=== PATIENT | female | born 1960 | race Caucasian/White ===

== ENCOUNTER 2019-09-10 16:18 | Emergency (ER) | payer MEDICAID, OTHER ==
[~2019-09-10] VITALS: Ht 162.6 cm; Wt 79.0 kg
[~2019-09-10 16:18] MED LIST: CYCL-1 PO
[2019-09-10 16:34] VITALS: BP 123/68
[2019-09-10] MEDS ORDERED: ketorolac trometh inj. 60 MG/2 ML VIAL IM ONE (17:05)
[2019-09-10] MEDS ORDERED: ondansetron 4mg rapidly disintigrating tab PO ONE (17:05)
[2019-09-10] MEDS ORDERED: HYDROcodone/acetaminophen 5mg/325mg tablet PO ONE (17:05)
[2019-09-10] MEDS ORDERED: HYDR-4383 PO (17:40)
== END 2019-09-10 18:07 | disposition home or self-care (01) ==
LOC: ER 16:18
DX: S82.831A Other fracture of upper and lower end of right fibula, initial encounter for closed fracture (principal); J45.909 Unspecified asthma, uncomplicated; Z90.49 Acquired absence of other specified parts of digestive tract; Z90.89 Acquired absence of other organs; Z79.899 Other long term (current) drug therapy; W01.0XXA Fall on same level from slipping, tripping and stumbling without subsequent striking against object, initial encounter; Y93.89 Activity, other specified; Y92.89 Other specified places as the place of occurrence of the external cause; Y99.8 Other external cause status
CPT/HCPCS: 29515; 73610; 96372; 99283; J1885

== ENCOUNTER 2019-09-18 07:30 | Emergency (ER) | payer MEDICAID ==
[~2019-09-18] VITALS: Ht 162.6 cm; Wt 79.5 kg
[~2019-09-18 07:30] MED LIST changes: +HYDR-4383 PO
[2019-09-18 07:36] VITALS: BP 162/90
--- NOTE | 2019-09-18 07:47 | NUR ---
PT CAME IN TO THE ER R/T ANKLE PAIN WAS IN HERE ON THE Aug WITH A ANKLE FX HAD A SPLINT PLACED. STATE THE SPLINT IS CASING MORE PAIN AND IS HERE ORTHO APPT IS ON THE Sep
[2019-09-18] MEDS ORDERED: ONDA4TAB6 PO (07:53)
[2019-09-18] MEDS ORDERED: ketorolac trometh inj. 60 MG/2 ML VIAL IM ONE (07:55)
[2019-09-18] MEDS ORDERED: acetaminophen 325mg tablet PO ONE (07:55)
== END 2019-09-18 08:30 | disposition home or self-care (01) ==
LOC: ER 07:31
DX: S82.831D Other fracture of upper and lower end of right fibula, subsequent encounter for closed fracture with routine healing (principal); J45.909 Unspecified asthma, uncomplicated; Z90.49 Acquired absence of other specified parts of digestive tract; W01.0XXD Fall on same level from slipping, tripping and stumbling without subsequent striking against object, subsequent encounter
CPT/HCPCS: 29515; 96372; 99284; J1885

== ENCOUNTER 2019-10-19 09:06 | Outpatient (CLI) | payer MEDICAID ==
[~2019-10-19 09:06] MED LIST changes: +ONDA4TAB6 PO
[2019-10-19 11:17] VITALS: BP 149/103
== END 2019-10-19 09:41 | disposition home or self-care (01) ==
LOC: ORTHO 09:06
PROVIDERS: ATTEND Nurse Practitioner
DX: S82.831D Other fracture of upper and lower end of right fibula, subsequent encounter for closed fracture with routine healing (principal); M77.31 Calcaneal spur, right foot; X58.XXXD Exposure to other specified factors, subsequent encounter
CPT/HCPCS: 73610; G0463

== ENCOUNTER 2019-11-14 15:14 | Outpatient (CLI) | payer MEDICAID | END 2019-11-14 16:04 | disposition home or self-care (01) | LOC: ORTHO 15:14 | PROVIDERS: ATTEND Nurse Practitioner | DX: S82.831D Other fracture of upper and lower end of right fibula, subsequent encounter for closed fracture with routine healing (principal); M79.89 Other specified soft tissue disorders; X58.XXXD Exposure to other specified factors, subsequent encounter | CPT/HCPCS: 73610 ==

== ENCOUNTER 2021-11-10 07:03 | Emergency (ER) | payer BC, MEDICAID ==
[~2021-11-10] VITALS: Ht 162.6 cm; Wt 84.5 kg
[2021-11-10 07:20] VITALS: BP 162/87
[2021-11-10 07:56] LABS: CLARITY,URINE CLEAR (Clear); COLOR,URINE YELLOW (Yellow); GLUCOSE, URINE NEGATIVE (Neg); KETONES,URINE NEGATIVE (Neg); LEUKOCYTE ESTERASE ,URINE NEGATIVE (Neg); NITRITES, URINE NEGATIVE (Neg); OCCULT BLOOD,URINE NEGATIVE (Neg); PROTEIN,URINE NEGATIVE (Neg); UROBILINOGEN,URINE 0.2 E.U/dL (0.2-1.0)
[2021-11-10 07:59] LABS: UA COLLECTION TYPE CLN CATCH MIDSTREAM
[2021-11-10 08:48] LABS: ALANINE AMINOTRANSFERASE 30 U/L (12-78); ALBUMIN 3.5 G/DL (3.4-5.0); ALKALINE PHOSPHATASE 69 IU/L (46-116); ANION GAP 7 (8-16); ASPARTATE AMINO TRANSFERASE 17 U/L (10-37); BILIRUBIN,TOTAL 0.3 MG/DL (0.1-1.0); BLOOD UREA NITROGEN 13 MG/DL (7-18); BUN/CREATININE RATIO 21.7 (6.6-38.0); CALCIUM 8.5 MG/DL (8.5-10.1); CHLORIDE 106 MMOL/L (99-107); GLUCOSE 79 MG/DL (70-104); POTASSIUM 4.2 MMOL/L (3.5-5.1); SODIUM 140 MMOL/L (135-145); eGFR > 90 ML/MIN
[2021-11-10 08:55] LABS: BASOPHILS % (AUTO) 0.4 % (0-1); EOSINOPHILS # (AUTO) 0.1 X10'3 (0-0.9); EOSINOPHILS % (AUTO) 1.5 % (0-6); HEMOGLOBIN 13.3 g/dl (12.0-16.0); LYMPHOCYTES # (AUTO) 1.9 X10'3 (1.1-4.8); LYMPHOCYTES % (AUTO) 28.7 % (21-51); MEAN CORPUSCULAR HEMOGLOBIN 30.7 PG (27.0-31.0); MEAN CORPUSCULAR VOLUME 90.2 FL (78-98); MEAN PLATELET VOLUME 9.1 FL (7.4-10.4); MONOCYTES # (AUTO) 0.5 X10'3 (0-0.9); MONOCYTES % (AUTO) 8.3 % (2-12); NEUTROPHILS % (AUTO) 61.1 % (42-75); PLATELET COUNT 227 X10'3 (140-440); RED BLOOD COUNT 4.32 X10'6 (4.20-5.60); RED CELL DISTRIBUTION WIDTH 12.7 % (11.5-14.5); WHITE BLOOD COUNT 6.5 X10'3 (4.5-11.0)
== END 2021-11-10 09:25 | disposition home or self-care (01) ==
LOC: ER 07:03
DX: M54.59 Other low back pain (principal); Y92.89 Other specified places as the place of occurrence of the external cause; Y99.8 Other external cause status; W19.XXXA Unspecified fall, initial encounter; Y93.89 Activity, other specified
CPT/HCPCS: 36415; 80053; 81003; 85025; 99283

== ENCOUNTER 2023-05-29 05:45 | Emergency (ER) | payer BC, MEDICAID, OTHER ==
[~2023-05-29] VITALS: Ht 162.6 cm; Wt 85.2 kg
[2023-05-29 06:37] VITALS: BP 161/91; PULSE 72; RESP 16; TEMP 98.5; O2SAT 99
[2023-05-29 07:05] LABS: BILIRUBIN,URINE NEGATIVE (Neg); CLARITY,URINE CLEAR (Clear); COLOR,URINE YELLOW (Yellow); GLUCOSE, URINE NEGATIVE (Neg); KETONES,URINE NEGATIVE (Neg); LEUKOCYTE ESTERASE ,URINE NEGATIVE (Neg); NITRITES, URINE NEGATIVE (Neg); OCCULT BLOOD,URINE TRACE-INTACT (Neg); PROTEIN,URINE NEGATIVE (Neg); UROBILINOGEN,URINE 0.2 E.U/dL (0.2-1.0)
[2023-05-29 07:06] LABS: URINE HCG NEGATIVE (NEG)
[2023-05-29 07:09] LABS: UA COLLECTION TYPE CLN CATCH MIDSTREAM
[2023-05-29 07:10] LABS: BACTERIA,URINE NONE SEEN /HPF (Neg); MUCUS STRANDS NONE SEEN /LPF (Neg); RBC,URINE 0-2 /HPF (0-2); SQUAMOUS EPITHELIAL CELL,UR FEW /LPF (FEW); WBC,URINE NONE SEEN /HPF (0-4)
[2023-05-29] MEDS ORDERED: ketorolac trometh inj. 60 MG/2 ML VIAL IM ONE (08:00)
[2023-05-29 09:13] LABS: BASOPHILS # (AUTO) 0.1 X10'3 (0-0.2); BASOPHILS % (AUTO) 0.7 % (0-1); EOSINOPHILS # (AUTO) 0.1 X10'3 (0-0.9); EOSINOPHILS % (AUTO) 1.6 % (0-6); HEMOGLOBIN 14.5 g/dl (12.0-16.0); LYMPHOCYTES # (AUTO) 2.3 X10'3 (1.1-4.8); LYMPHOCYTES % (AUTO) 25.9 % (21-51); MEAN CORPUSCULAR HEMOGLOBIN 30.8 PG (27.0-31.0); MEAN CORPUSCULAR HGB CONC 33.8 g/dL (33.0-36.5); MEAN CORPUSCULAR VOLUME 91.1 FL (78-98); MEAN PLATELET VOLUME 9.3 FL (7.4-10.4); MONOCYTES # (AUTO) 0.6 X10'3 (0-0.9); MONOCYTES % (AUTO) 6.5 % (2-12); NEUTROPHILS # (AUTO) 5.7 X10'3 (1.8-7.7); NEUTROPHILS % (AUTO) 65.3 % (42-75); PLATELET COUNT 227 X10'3 (140-440); RED BLOOD COUNT 4.72 X10'6 (4.20-5.60); RED CELL DISTRIBUTION WIDTH 13.3 % (11.5-14.5); WHITE BLOOD COUNT 8.7 X10'3 (4.5-11.0)
[2023-05-29 09:24] LABS: ALANINE AMINOTRANSFERASE 56 U/L (12-78); ALKALINE PHOSPHATASE 71 IU/L (46-116); ANION GAP 9 (8-16); ASPARTATE AMINO TRANSFERASE 25 U/L (10-37); BILIRUBIN,TOTAL 0.4 MG/DL (0.1-1.0); BLOOD UREA NITROGEN 12 MG/DL (7-18); BUN/CREATININE RATIO 16.9 (10.0-20.0); CALCIUM 9.5 MG/DL (8.5-10.1); CHLORIDE 104 MMOL/L (99-107); CREATININE 0.71 MG/DL (0.40-0.90); GLUCOSE 98 MG/DL (70-104); LIPASE 198 U/L (73-393); POTASSIUM 4.3 MMOL/L (3.5-5.1); SODIUM 141 MMOL/L (135-145); TOTAL CARBON DIOXIDE 28.2 MMOL/L (24-32); eCRCL 72 ML/MIN; eGFR 84 ML/MIN
== END 2023-05-29 09:41 | disposition home or self-care (01) ==
LOC: ER 05:46
DX: M54.50 Low back pain, unspecified (principal); G89.29 Other chronic pain; J45.909 Unspecified asthma, uncomplicated; Z79.899 Other long term (current) drug therapy; Z90.49 Acquired absence of other specified parts of digestive tract
CPT/HCPCS: 36415; 74176; 80053; 81001; 81025; 83690; 85025; 96372; 99285; J1885

== ENCOUNTER 2024-07-02 07:40 | Emergency (ER) | payer MEDICAID, OTHER ==
[~2024-07-02] VITALS: Ht 162.6 cm; Wt 85.6 kg
[2024-07-02 09:11] VITALS: PULSE 68; RESP 16; O2SAT 98
[2024-07-02] MEDS: albuterol 2.5 MG/3 ML nebule NEB ONE (09:11)
[2024-07-02 09:20] VITALS: PULSE 88; RESP 16; O2SAT 99
[2024-07-02 09:35] VITALS: BP 132/86; PULSE 67; RESP 14; TEMP 98; O2SAT 97
== END 2024-07-02 09:42 | disposition home or self-care (01) ==
LOC: ER 07:40
DX: B34.9 Viral infection, unspecified (principal); J45.909 Unspecified asthma, uncomplicated; Z88.5 Allergy status to narcotic agent; Z88.8 Allergy status to other drugs, medicaments and biological substances; Z90.49 Acquired absence of other specified parts of digestive tract; Z90.89 Acquired absence of other organs
CPT/HCPCS: 71045; 94640; 94760; 99283

== ENCOUNTER 2025-06-01 10:38 | Emergency (ER) | payer BC, OTHER ==
[~2025-06-01] VITALS: Ht 162.6 cm; Wt 93.1 kg
[2025-06-01 11:42] LABS: LEUKOCYTE ESTERASE ,URINE NEGATIVE (Neg); NITRITES, URINE NEGATIVE (Neg); OCCULT BLOOD,URINE NEGATIVE (Neg)
[2025-06-01 11:44] LABS: UA COLLECTION TYPE CLN CATCH MIDSTREAM
[2025-06-01 11:47] LABS: MUCUS STRANDS MODERATE /LPF (Neg); SQUAMOUS EPITHELIAL CELL,UR MANY /LPF (FEW)
--- NOTE | 2025-06-01 14:01 | Physician Documentation ---
History of Present Illness ~ Chief Complaint: Urinary Symptoms Stated Complaint: BACK PAIN Time Seen by MD: 14:09 OK to notify your PCP?: Yes Primary Medical Doctor: NONE Source: patient Mode of Arrival: POV Exam Limitations: no limitations HPI This is a 64-year-old female who presents with right-sided flank pain radiating occasionally to her right groin for the past two weeks, patient reports that in the past she has been told she has kidney stones. Patient reports recently she has had dark and foul-smelling urine. Patient reports no fevers. Patient states that the pain is worse with direct pressure to her lower back. Taking Motrin and Tylenol have not helped. No constipation or diarrhea. Medication Reconciliation Allergies: Coded Allergies: No Known Allergies (Unverified , 06/01/25) Scheduled Hydrocodone/Acetaminophen ([place] 5-325 Tablet), 1 TAB PO TID PRN Ondansetron Hcl (Zofran), 1 TAB PO Q6H Scheduled PRN Cyclobenzaprine* (Cyclobenzaprine*), 1 TABLET PO Q8H PRN for muscle spasms Hydrocodone Bit/Acetaminophen (Hydrocodon-Acetaminophn 10-325 tablet), 1 TAB PO TID PRN PRN for pain Past Medical History Past Medical History: Asthma, Cholelithiasis, Extremity Fracture Past Surgical History: cholecystectomy, tonsillectomy Alcohol Use: None Drug Use: none Lives In: Home Review of Systems All Other Systems at this time: Reviewed and Negative ROS As stated above in the HPI, otherwise all systems are reviewed and negative. Physical Exam Vital Signs: Temperature: 98.8, Source: Temporal, Heart Rate: 71, Respiratory Rate: 16, BP: 183/95, Pulse Oximetry: 96, Weight: 93.100 Oxygen Flow Rate: 0 Physical Exam General Appearance: Alert, WD/WN. NAD. HEENT: NCAT, PERRL, EOMI. Neck: Supple, trachea midline. Cardiovascular: RRR. No m/r/g. Lungs: CTAB. Breathing unlabored MSK: TENDERNESS OVER RIGHT SI JOINT AND RIGHT PARASPINAL MUSCLES OF LOWER LUMBAR SPINE, NO MIDLINE TENDERNESS. BACK: NO CVA TENDERNESS Extremities: Normal inspection. No edema. Skin: Warm/dry, normal color Neurological: Alert and oriented x4, normal gait. Psychiatric: Affect congruent with mood. Progress Progress Note CLINICAL HISTORY: Flank Pain TECHNIQUE: CT of the abdomen and pelvis was performed without IV contrast. This exam was performed according to our departmental dose optimization program. Up-to-date CT equipment and radiation dose reduction techniques are utilized as appropriate. CTDI 32.7 DLP 1560.4 COMPARISON: CT CT ABDOMEN PELVIS on DOS: 05/29/23 FINDINGS: Abdomen/Pelvis: The spleen, pancreas, abdominal glands, left kidney, bladder, and uterus are grossly unremarkable. The gallbladder is absent. There is diffuse hepatic steatosis. There is [id number] right posterior renal cortical scarring. The abdominal aorta is normal in course and caliber. There are no significant atherosclerotic calcifications. There is no free intraperitoneal air or fluid. There is no enlarged abdominal pelvic lymph node. There is no bowel wall thickening or dilatation. There is minimal colonic diverticulosis. There is a small fat containing umbilical hernia. Other: The imaged lower thorax demonstrates right coronary artery calcifications. No acute osseous abnormality is evident. Impression: No acute noncontrast CT abnormality of the abdomen / pelvis. Diffuse hepatic steatosis. Minimal colonic diverticulosis. cholecystectomy. Right coronary artery calcifications. Results/Orders Reviewed/noted all lab results: Yes Results/Orders Vital Signs 06/01/25 06/01/25 06/01/25 11:04 14:12 14:22 Temp 98.8 Pulse 71 78 Resp 16 18 16 B/P (MAP) 183/95 176/90 (118) Pulse Ox 96 99 O2 Flow Rate 0 0 Laboratory Tests Test 06/01/25 11:09 06/01/25 14:37 Urine Specimen Description Cln catch midstream Urine Color Yellow Urine Clarity Slightly cloudy Urine pH 6.0 Urine Specific [place] 1.025 Urine Protein Negative Urine Glucose (UA) Negative Urine Ketones Negative Urine Occult Blood Negative Urine Nitrite Negative Urine Bilirubin Negative Urine Urobilinogen 0.2 Urine Leukocyte Esterase Negative Urine RBC 0-2 Urine WBC 0-4 Urine Squamous Epithelial Cells Many Urine Bacteria 1+ Urine Mucus Moderate Urine Culture Indicated Not ind Volume Urine Centrifuged 10 ml Urine Comment White Blood Count 8.7 Red Blood Count 4.53 Hemoglobin 14.0 Hematocrit 41.1 Mean Corpuscular Volume 90.6 Mean Corpuscular Hemoglobin 30.9 Mean Corpuscular Hemoglobin Concent 34.1 Red Cell Distribution Width 13.3 Platelet Count 218 Mean Platelet Volume 8.7 Neutrophils (%) (Auto) 63.1 Lymphocytes (%) (Auto) 27.6 Monocytes (%) (Auto) 7.0 Eosinophils (%) (Auto) 1.8 Basophils (%) (Auto) 0.5 Neutrophils # (Auto) 5.5 Lymphocytes # (Auto) 2.4 Monocytes # (Auto) 0.6 Eosinophils # (Auto) 0.2 Basophils # (Auto) 0.0 CBC Comment Sodium Level 140 Potassium Level 3.7 Chloride Level 104 Carbon Dioxide Level 26.4 Anion Gap 10 Blood Urea Nitrogen 8 Creatinine 0.71 Estimated GFR/1.73 m2 83 BUN/Creatinine Ratio 11.3 Glucose Level 100 Calcium Level 9.1 Total Bilirubin 0.5 Aspartate Amino Transf (AST/SGOT) 38 H Alanine Aminotransferase (ALT/SGPT) 68 Alkaline Phosphatase 72 Total Protein 7.5 Albumin 4.1 Globulin 3.4 Albumin/Globulin Ratio 1.2 Chemistry Comments Medical Decision Making Findings MSE performed in triage and patient returned to ED lobby by nursing staff to await available ED room, patient is hemodynamically stable to wait in ED lobby Additional Comment PATIENT HAS PAIN OVER HER RIGHT SI JOINT CONSISTENT WITH MUSCULOSKELETAL ETIOLOGY. GIVEN THE FACT THAT SHE HAS HAD THIS PAIN FOR TWO WEEKS AND SHE HAS NO BLOOD IN URINE ON URINALYSIS AND IT SEEMS TO BE RELATED TO POSITION THIS ALSO SUPPORTS MSK ETIOLOGY. CT SCAN ORDERED IN TRIAGE NEGATIVE FOR KIDNEY STONE. Departure Time of Disposition: 15:20 Disposition: 01 HOME / SELF CARE / HOMELESS Impression: Primary Impression: Sacroiliac joint pain Additional Impression: Low back pain Qualified Codes: M54.50 - Low back pain, unspecified Condition: Stable Discharge Instructions: Acute Back Pain, Adult Additional Instructions: PAIN MEDICATION SENT TO PHARMACY PAIN CONSISTENT WITH YOUR BACK AND SI JOINT CT SCAN NEGATIVE FOR STONE CLINICAL HISTORY: Flank Pain TECHNIQUE: CT of the abdomen and pelvis was performed without IV contrast. This exam was performed according to our departmental dose optimization program. Up-to-date CT equipment and radiation dose reduction techniques are utilized as appropriate. CTDI 32.7 DLP 1560.4 COMPARISON: CT CT ABDOMEN PELVIS on DOS: 05/29/23 FINDINGS: Abdomen/Pelvis: The spleen, pancreas, abdominal glands, left kidney, bladder, and uterus are grossly unremarkable. The gallbladder is absent. There is diffuse hepatic steatosis. There is [id number] right posterior renal cortical scarring. The abdominal aorta is normal in course and caliber. There are no significant atherosclerotic calcifications. There is no free intraperitoneal air or fluid. There is no enlarged abdominal pelvic lymph node. There is no bowel wall thickening or dilatation. There is minimal colonic diverticulosis. There is a small fat containing umbilical hernia. Other: The imaged lower thorax demonstrates right coronary artery calcifications. No acute osseous abnormality is evident. Impression: No acute noncontrast CT abnormality of the abdomen / pelvis. Diffuse hepatic steatosis. Minimal colonic diverticulosis. cholecystectomy. Right coronary artery calcifications. Referrals: NO PRIMARY CARE PROVIDER (PCP) Prescriptions Hydrocodone Bit/Acetaminophen (Hydrocodon-Acetaminophn 10-325 tablet) 10mg- 325mg Tablet 1 TAB PO TID PRN PRN for pain for 5 Days, #15 TAB dx: acute back pain M54.5 Prov: AYDE HOLLINGSWORTH 06/01/25 Education Educated: Patient Educated regarding: diagnosis, treatment, need for follow up Signature Scribe Signature: X Attestation: APRIL QUIGLEY Jun 01, 2025 14:01 AYDE HOLLINGSWORTH Jun 01, 2025 15:23
[2025-06-01 14:53] LABS: MEAN PLATELET VOLUME 8.7 FL (7.4-10.4); RED CELL DISTRIBUTION WIDTH 13.3 % (11.5-14.5)
[2025-06-01 15:05] LABS: CREATININE 0.71 MG/DL (0.40-0.90); TOTAL CARBON DIOXIDE 26.4 MMOL/L (24-32); eCRCL 70 ML/MIN; eGFR 83 ML/MIN
--- NOTE | 2025-06-01 15:19 | RADIOLOGY REPORT ---
CLINICAL HISTORY: Flank Pain TECHNIQUE: CT of the abdomen and pelvis was performed without IV contrast. This exam was performed ac cording to our departmental dose optimization program. Up-to-date CT equipment and radiation dose red uction techniques are utilized as appropriate. CTDI 32.7 DLP 1560.4 COMPARISON: CT CT ABDOMEN PELVIS on DOS: 05/29/23 FINDINGS: Abdomen/Pelvis: The spleen, pancreas, abdominal glands, left kidney, bladder, and uterus are grossly unremarkable. Th e gallbladder is absent. There is diffuse hepatic steatosis. There is [id number] right posterior renal cortical scarring . The abdominal aorta is normal in course and caliber. There are no significant atherosclerotic calcifi cations. There is no free intraperitoneal air or fluid. There is no enlarged abdominal pelvic lymph node. There is no bowel wall thickening or dilatation. There is minimal colonic diverticulosis. There is a small fat containing umbilical hernia. Other: The imaged lower thorax demonstrates right coronary artery calcifications. No acute osseous abnormality is evident. Impression: No acute noncontrast CT abnormality of the abdomen / pelvis. Diffuse hepatic steatosis. Minimal colonic diverticulosis. cholecystectomy. Right coronary artery calcifications.
[2025-06-01] MEDS ORDERED: HYDR-3972 PO (15:22)
[2025-06-01 15:31] VITALS: BP 172/88; PULSE 72; RESP 18; TEMP 98.2; O2SAT 98
== END 2025-06-01 15:33 | disposition home or self-care (01) ==
LOC: ER 10:39
DX: M53.3 Sacrococcygeal disorders, not elsewhere classified (principal); M54.50 Low back pain, unspecified; J45.909 Unspecified asthma, uncomplicated; I25.10 Atherosclerotic heart disease of native coronary artery without angina pectoris; Z87.442 Personal history of urinary calculi; Z90.49 Acquired absence of other specified parts of digestive tract; Z79.899 Other long term (current) drug therapy
CPT/HCPCS: 36415; 74176; 80053; 81001; 85025; 99284